=== PATIENT | male | born 1945 | race Caucasian/White ===

== ENCOUNTER 2023-01-08 09:52 | Outpatient (CLI) | payer MEDICARE, SELFPAY ==
--- NOTE | 2023-01-08 10:00 | ECG_ITS ---
Measurements Intervals [place] Rate: 64 P: 3 FL: 182 QRS: -39 QRSD: 119 T: 21 QT: 399 QTc: 414 Interpretive Statements SINUS RHYTHM VENTRICULAR TRIGEMINY VOLTAGE CRITERIA FOR LVH POOR R WAVE PROGRESSION, ANTERIOR LEADS BORDERLINE T WAVE ABNORMALITY- INF/HIGH LAT LEADS ABNORMAL ECG NO PREVIOUS ECG AVAILABLE FOR COMPARISON Electronically Signed On 01-08-2023 11:06:13 CDT by Tima Jackson D.O.
[2023-01-08 10:55] LABS: Hematocrit 42.5 % (42.0-52.0)
== END 2023-01-08 09:53 | disposition home or self-care (01) ==
PROVIDERS: Anesthesiology; PCP Physician Assistant Medical; Visit Provider Orthopaedic Surgery
DX: Z01.818 Encounter for other preprocedural examination (principal); M75.100 Unspecified rotator cuff tear or rupture of unspecified shoulder, not specified as traumatic; R94.31 Abnormal electrocardiogram [ECG] [EKG]; R00.8 Other abnormalities of heart beat; I10 Essential (primary) hypertension
CPT/HCPCS: 36415; 85014; 85018; 87081; 93005

== ENCOUNTER 2023-01-28 10:20 | Outpatient (CLI) | payer MEDICARE, SELFPAY | END 2023-01-28 10:21 | disposition home or self-care (01) | LOC: ANHSURGERY 10:24 | PROVIDERS: PCP Physician Assistant Medical; Visit Provider Orthopaedic Surgery | DX: Z01.818 Encounter for other preprocedural examination (principal); S46.009A Unspecified injury of muscle(s) and tendon(s) of the rotator cuff of unspecified shoulder, initial encounter | CPT/HCPCS: 87081 ==

== ENCOUNTER 2023-02-08 00:54 | Day surgery (SDC) | payer MEDICARE, SELFPAY ==
[2023-01-07 14:58] VITALS: BMI 28.4
--- NOTE | 2023-01-07 15:27 | PC.NURSE ---
PRE-OP INSTRUCTIONS, PLEASE READ CAREFULLY Report to the Outpatient Waiting Room, entrance under the green pavilion located off [facility], at time _1000_ on date _01/16/23_. Planned Procedure Time: _1200_. Time changes happen often and if your time is changed the preop area will call you the afternoon before. - You and your visitor will be asked to self-screen and do not enter if you have any COVID symptoms. - A mask is optional within the hospital at this time. Patients may have clear liquids (water, carbonated beverages, clear teas, apple juice) until 3 hours prior to surgery (0900 AM) with a maximum of 20 ounces. - No food from midnight until time of surgery Take the following medications with a SIP of water the morning of surgery: _AMLODIPINE_ DO NOT STOP ANY OF YOUR OTHER PRESCRIPTION MEDICATIONS PRIOR TO SURGERY ?EXCEPT THE FOLLOWING Medications to discontinue per ANESTHESIA - _MULTIVITAMIN 3 DAYS PRIOR TO SURGERY, Date to take last dose 01/12/23_ Please no make-up, nail danish, hairspray, perfume, deodorant, or body powder the day of surgery. No jewelry (including any body piercings) or valuables the day of surgery, leave them at home. Please take a shower or bath the night before, or the morning of, surgery with an antibacterial soap. Wear comfortable, loose fitting clothing. - Jewelry must be removed prior to entering the operating room. Rings and piercings that are not removed may be cut off. - The hospital will not accept responsibility for valuables. - Please leave all valuables, including medications, at home the day of surgery. If you are going home after surgery, a licensed milk wagon driver must drive you home. - NO public transportation without another adult if you receive anesthesia. - We recommend that an adult stay with you for 24 hours following discharge. - We also recommend that you do not drive, make important decision, drink alcoholic beverages, or take any drugs that were not prescribed by your health care provider for at least 24 hours after your discharge time. Follow any additional instructions given to you from your surgeon. If you or anyone in your household have experienced Covid symptoms in the past week, please notify your surgeon or the nurse liaison at the phone number below for possible testing. Telephone instructions given to _SPOUSE (MARINE)_and asked if any additional questions and then verbalized understanding. Patient advised to call surgeon office or pre surgery nurse liaison [phone] if any additional questions.
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
--- NOTE | 2023-01-21 13:17 | PC.NURSE ---
Report to the Outpatient Waiting Room, entrance under the green pavilion located off [facility], at time __1000 on date __02/08/23 . Planned Procedure Time: __1200 . Time changes happen often and if your time is changed the preop area will call you the afternoon before. - You and your visitor will be asked to self-screen and do not enter if you have any COVID symptoms. - A mask is optional within the hospital at this time. Patients may have clear liquids (water, carbonated beverages, clear teas, apple juice) until 3 hours prior to surgery with a maximum of 20 ounces. - No food from midnight until time of surgery - Infants may have breast milk until 4 hours before surgery, formula 6 hours prior to surgery. - Children will be allowed to drink immediately following surgery. If applicable, please bring a bottle or sippy cup to assist with drinking. Juice, water, soda, and popsicles are readily available. For infants on formula, please bring formula the day of surgery. Pacifiers are allowed. Take the following medications with a SIP of water the morning of surgery: ___AMLODIPINE DO NOT STOP ANY OF YOUR OTHER PRESCRIPTION MEDICATIONS PRIOR TO SURGERY ?EXCEPT THE FOLLOWING Medications to discontinue per physician __MULTIVITAMIN 3 DAYS PRE OP .LAST DOSE 02/04/23 Please no make-up, nail cameroonian, hairspray, perfume, deodorant, or body powder the day of surgery. No jewelry (including any body piercings) or valuables the day of surgery, leave them at home. Please take a shower or bath the night before, or the morning of, surgery with an antibacterial soap. Wear comfortable, loose fitting clothing. Children are encouraged to wear pajamas. - Jewelry must be removed prior to entering the operating room. Rings and piercings that are not removed may be cut off. - The hospital will not accept responsibility for valuables. - Please leave all valuables, including medications, at home the day of surgery. If you are going home after surgery, a licensed recycler forklift driver truck driver must drive you home. - NO public transportation without another adult if you receive anesthesia. - We recommend that an adult stay with you for 24 hours following discharge. - We also recommend that you do not drive, make important decision, drink alcoholic beverages, or take any drugs that were not prescribed by your health care provider for at least 24 hours after your discharge time. For Pediatric surgeries, we recommend two adults accompany the child home. Follow any additional instructions given to you from your surgeon. If you or anyone in your household have experienced Covid symptoms in the past week, please notify your surgeon or the nurse liaison at the phone number below for possible testing. Telephone instructions given to ___SPOUSE AZULA and asked if any additional questions and then verbalized understanding. Patient advised to call surgeon office or pre surgery nurse liaison [phone] if any additional questions.
--- NOTE | 2023-01-21 13:25 | PC.NURSE ---
STATES NO CHANGE IN HEALTH HX EXCEPT DX WITH BRONCHITIS IN DEC. TAKING ABX WILL COMPLETE AFTER 01/25
[2023-02-08] VITALS (8 sets, daily range): BP systolic 115–167; BP diastolic 58–74; PULSE 71–83; RESP 14–18; TEMP 36.2–36.9; O2SAT 94–100; BMI 29.2
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
[2023-02-08] MEDS: LACTATED RINGERS 1,000 ML 30 ML IV CONT ×2 (11:00→15:08)
--- NOTE | 2023-02-08 11:26 | P.PNAN_ITS ---
Anes - Initial Pre Proc Eval Procedure: Operation Date: 02/08/23 12:00 Proposed Procedures p Right Shoulder Arthroscopy with Open Rotator Cuff Repair, Proceed as Indicated - Hugh Mooney MD Date/Time: 02/08/23 11:26 Surgeon: Hugh Mooney MD Pre Op Diagnosis: Lf Rt Shldr Rot Cuff Tear Patient Data Age: 77 Gender: M Height: 1.75 m Weight: 87.27 kg Allergies Allergy/AdvReac Type Severity Reaction Status Date / Time No Known Allergies Allergy Verified 02/08/23 11:19 Home Medications Medication Instructions Recorded Confirmed Type amlodipine 10 mg tablet 10 mg DAILY 01/07/23 02/08/23 History multivitamin 1 tablet PO DAILY 01/07/23 01/21/23 History rosuvastatin 10 mg tablet 10 mg DAILY 01/07/23 01/21/23 History Patient hx anesthesia problems: none Family hx anesthesia problems: none Results Review: All pre-operative results and documents have been reviewed as part of the pre- operative evaluation. PMFSH Past Medical History Medical History (Updated 02/08/23 @ 11:27 by Ari Fu MD) Prostate CA Social History Social History Smoking status: Never smoker Second hand tobacco smoke exposure: No Alcohol intake: never Substance use: never Substance use type: does not use Living arrangements: with family Spiritual care concerns: No Anes - Eval Final PreProcedure Day of Procedure 02/08/23 11:26 Patient weight: overweight Heart: regular rate and rhythm Lungs: clear to auscultation Airway: Mallampati scale class II Neurological: alert and oriented Last oral intake: >/= 8 hours ASA classification: III Emergent: no Anesthetic plan: proceed Anesthesia type and monitoring: general ETT and standard monitoring Results Review: All pre-operative results and documents have been reviewed as part of the pre- operative evaluation. Informed Consent: The patient's anesthetic plan and its attendant risks and benefits were discussed with the patient/family/POA. Questions were solicited and answers provided to the satisfaction of the patient/family/POA.
[2023-02-08] MEDS: KETOROLAC 15 MG/ML VIAL (*BKC) IV PUSH (11:46)
[2023-02-08] MEDS: ACETAMINOPHEN 500 MG TABLET 1000 MG PO (11:46)
[2023-02-08] MEDS: VANCOMYCIN 1,250 MG/NS 250 ML BAG 166.67 MG IVPB (11:49)
--- NOTE | 2023-02-08 12:32 | WPDHPUPDATE1 ---
History and Physical Update Update Date/Time: 02/08/23 12:32 History and Physical has been reviewed, including an updated exam of the patient. There are NO changes in the patient's condition. Risks, benefits, and alternatives have been discussed and questions answered. Patient agrees to proceed with procedure.
[2023-02-08] MEDS: ceFAZolin 2 GM/D5W 50 ML 2 GM/50 ML BAG IVPB ×2 (12:54→16:20)
--- NOTE | 2023-02-08 13:28 | WPDANESPNB ---
Anes - Peripheral Nerve Block Date/Time: 02/08/23 13:28 I have discussed with the patient/family/POA the placement of a peripheral nerve block for post-operative pain management, including associated risks, benefits, complications, and side effects. Alternative methods of post-operative analgesia were detailed. Questions were solicited and answers provided to the satisfaction of the patient/family/POA. Time-Out: A pre-procedural Time-Out was completed immediately before starting the procedure and confirmed: Patient Identification, Site, Procedure, Patient Position and the Availability of Requisite Equipment. Clinical Indications: Acute post-operative pain management requested by the operative surgeon. Nerve Block Insertion Note Anes-nerve block: interscalene right Patient position: supine Skin prep: chlorhexidine Needle: 22 gauge, stimulating, insulated echogenic needle. Needle length: 50 mm Technique: ultrasound Injectate: bupivacaine 0.5% with epi 5 mcg/ml (30cc no epi) and dexamethasone (mg) (8) Observations: tolerated well Complications: none Procedure start time:: 1215 Procedure end time:: 1220
[2023-02-08] MEDS: ceFAZolin SODIUM 1 GM VIAL (13:54)
--- NOTE | 2023-02-08 15:10 | PM.OP ---
Procedure Note - Brief Procedure Note - Brief Date of procedure: 02/08/23 Lf Rt Shldr Rot Cuff Tear Procedure performed: Arthroscopy with mini open rotator cuff repair right shoulder Surgeon: NIMISHA Gandhi Findings: 77-year-old male underwent right shoulder arthroscopy with mini open rotator cuff repair on 02/08. I was involved procedure including positioning patient on your table in 1st assisting to the time surgery. Total time spent was doing 1/2 hours
--- NOTE | 2023-02-08 15:52 | W.PM.PROC2 ---
Procedure Note - Detailed Date of Procedure 02/08/23 Pre-op Diagnosis Lf Rt Shldr Rot Cuff Tear, chronic long head of biceps rupture. Post-op Diagnosis Same Procedure Performed Arthroscopic limited debridement left shoulder, open rotator cuff repair. Surgeon Hugh Mooney MD Customer Retention Representative kirk Anesthesia General and Regional Description of Procedure Patient underwent interscalene block in the preop holding area brought to the operating room and general anesthesia was administered. He was carefully positioned in the beach chair position the head secured in neutral alignment and the right shoulder prepped draped usual fashion. He received 2 g Ancef weight based vancomycin preoperatively. All the skin was covered with Ioban except the top portion. Arthroscopic portal was placed. Reticular cartilage labrum looked fine. There was absence of the long head of biceps within the joint. The superior labrum showed no residual stump and was round and smooth and superior aspect interestingly. I could not identify the long head of the biceps exiting the shoulder either. The subscapularis showed some fraying of the upper edge but was present. Was a large tear involving the entire supraspinatus and infraspinatus tendons and upper edge of teres minor and this was retracted about 1/2 cm medial to the medial edge of the greater tuberosity footprint. There was no significant cuff tissue remaining on the greater tuberosity. The endoscope was placed in the subacromial space and the frayed CA ligament which was thickened and frayed was debrided to make a little extra subacromial space. I did not perform an acromioplasty. There did not appear to be any appreciable instability of the os acromiale fragment. After removal of the arthroscope remaining skin was covered with IOban and outer gloves changed. We then made a 2-1/2 inch longitudinal incision starting from the superior aspect of the anterior acromion the tendinous raphe between the anterior middle heads of the deltoid was incised and a 3.5 cm split utilized. Deltoid was elevated off 1 cm anterior acromion. This gave very adequate exposure the self-retaining retractor was placed. The inferior lip of the anterior edge of the acromion was carefully smoothed with a rasp. Again the os acromiale appeared stable. The rotator cuff tear was inspected. The rotator cuff interval was still intact and there was no biceps in the bicipital groove. The anterior cable of the supraspinatus was torn and retracted medially with a continuous cuff of lateral edge of supraspinatus infraspinatus down to a split to the teres minor. We placed traction sutures through the full-thickness of the cuff. We grabbed the articular side of the cuff to make sure that this was not retracted. There is no significant the lamination change in the cuff tissue seemed to have excellent integrity and normal thickness. Again there was no residual tissue on the greater tuberosity. We used a 15 blade scalpel to carefully scrape the surface to remove fibrin debris and causes diffuse bleeding from the infraspinatus and supraspinatus footprints. A 2 mm bur was used to make multiple bur holes adjacent to the articular surface for passage of sutures. We used a medium tear elevator and gently released adhesions over the surface of the infraspinatus and supraspinatus tendons and muscles. With this done the tendon fully mobilized to the anterior lateral corner of the supraspinatus footprint and he had a visible thickening of the anterior edge of the supraspinatus representing the anterior cable and this was anchored down just posterior to the bicipital groove region all the way to the anterolateral most aspect of the greater tuberosity footprint and with this done we rotated the shoulder internal external and appeared that the placement of the tendon was appropriate. Next we placed another suture at junction of infraspinatus and supraspinatus. The suture bites were 15
== END 2023-02-08 17:10 | disposition home or self-care (01) ==
PROVIDERS: PCP Physician Assistant Medical; Visit Provider Orthopaedic Surgery
PROC: (CPT 29805; principal; 2023-02-08 12:00)
DX: S46.011A Strain of muscle(s) and tendon(s) of the rotator cuff of right shoulder, initial encounter (principal); S46.111A Strain of muscle, fascia and tendon of long head of biceps, right arm, initial encounter; W18.39XA Other fall on same level, initial encounter; G89.18 Other acute postprocedural pain; Z85.46 Personal history of malignant neoplasm of prostate
CPT/HCPCS: 23410; 64415; 36415; 85014; 85018; 87081; 93005; A4565; A9270; J0330; J0690; J1100; J1885; J2250; J2405; J2704; J3010; J3370; J7120

== ENCOUNTER 2024-03-11 13:43 | Outpatient (CLI) | payer BC, SELFPAY ==
--- NOTE | ~2024-03-11 | XR_ITS ---
XR hand RT min 3V Ordering provider: NIMISHA Gandhi History: . R52 - TRIGGER FINGER RT PINKY FOLLOW UP . Comparison: None. FINDINGS: BONES: No acute fracture or dislocation. JOINT SPACES: Narrowing of the distal interphalangeal joints. Osteoarthritic changes of the first met acarpophalangeal joint with minimal subluxation. SOFT TISSUES: Small calcification seen near to the distal interphalangeal joints of the second and fi fth fingers. IMPRESSION: No acute osseous abnormality right hand. 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 Reviewed, dictated and finalized at location A. [employer] EXECUTIVE
== END 2024-03-11 13:44 | disposition home or self-care (01) ==
PROVIDERS: PCP Physician Assistant Medical; Visit Provider Physician Assistant Surgical
DX: M19.041 Primary osteoarthritis, right hand (principal)
CPT/HCPCS: 73130